=== PATIENT | female | born 1970 | race Caucasian/White ===

== ENCOUNTER → 2018-06-02 | Outpatient (REF) | payer MEDICARE, MEDICAID ==
[2018-06-02 19:14] LABS: APPEARANCE, URINE CLOUDY (CLEAR); BACTERIA, URINE AUTO NEGATIVE (NEGATIVE); BILIRUBIN, URINE AUTO NEGATIVE (NEGATIVE); BLOOD, URINE BLOOD NEGATIVE (NEGATIVE); COLOR, URINE YELLOW (YELLOW); GLUCOSE, URINE (UA) AUTO NEGATIVE (NEGATIVE); KETONE, URINE AUTO NEGATIVE (NEGATIVE); LEUKOCYTE ESTERASE, URINE AUTO NEGATIVE (NEGATIVE); NITRITE, URINE AUTO NEGATIVE (NEGATIVE); PROTEIN, URINE AUTO NEGATIVE (NEGATIVE); RBC, URINE AUTO 1 /HPF (0-3); SPECIFIC GRAVITY URINE AUTO 1.017 (1.002-1.035); SQUAMOUS EPITHELIAL CELL UR AU 8 /HPF (0-6); WBC, URINE AUTO 1 /HPF (0-3)
== END ==
LOC: M SMT 17:45
PROVIDERS: ATTEND Nurse Practitioner Women's Health
DX: Q61.00 Congenital renal cyst, unspecified (principal)
CPT/HCPCS: 36415; 80048; 81001; 87088; 87186; G0463

== ENCOUNTER → 2018-06-02 | Outpatient (CLI) | payer MEDICARE, MEDICAID ==
[2018-06-02 18:59] LABS: BLOOD UREA NITROGEN 12 MG/DL (7-18); CALCIUM LEVEL 8.5 MG/DL (8.5-10.1); CARBON DIOXIDE LEVEL 29 MEQ/L (21-32); CHLORIDE LEVEL 106 MEQ/L (98-107); CREATININE FOR GFR 0.65 MG/DL (0.55-1.30); GLOMERULAR FILTRATION RATE > 60.0 (>58); GLUCOSE, FASTING 79 MG/DL (70-100); POTASSIUM SERUM 4.3 MEQ/L (3.5-5.1); SODIUM LEVEL 138 MEQ/L (136-145)
== END ==
LOC: M SMT 15:23
PROVIDERS: ATTEND Nurse Practitioner Women's Health
DX: Q61.00 Congenital renal cyst, unspecified (principal)

== ENCOUNTER → 2019-05-18 | Outpatient (CLI) | payer MEDICARE, MEDICAID ==
--- NOTE | 2019-05-18 19:09 | REP ---
CT ABDOMEN WITH AND WITHOUT CONTRAST: Outside study from [facility] dated 01/18/2019. Axial CT images obtained prior to and following intravenous contrast administration. Coronal reconstruction images performed as well. Visualized lung bases demonstrate no infiltrate. The liver demonstrates no mass. The gallbladder is contracted. Common bile duct is mildly prominent 9 mm in maximum diameter. The spleen is normal in size with no intrinsic abnormality. The right adrenal gland is normal. The pancreas is unremarkable. Left adrenal and kidney have been surgically removed with multiple metallic clips in the left renal fossa and no evidence of residual mass. Right kidney demonstrates a cystic mass partially exophytic in the lower pole. Precontrast images show partial wall calcification which is linear in nature. Internal density measurements are slightly greater than that of water, generally between 10 and 20 Hounsfield units. On the post contrast images there is no appreciable internal enhancement of this cystic mass. There is no adenopathy, free air or free fluid. There are degenerative changes of the spine. IMPRESSION: Complex cystic mass lower pole right kidney. It measures 3.5 cm in diameter. There is mild calcification and thickening of the wall of the cyst. Density measurement internally is 10 to 20 Hounsfield units with no appreciable enhancement. 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 Electronically Signed by Tawanda Pollack MD 05/19/2019 04:38 P
== END ==
LOC: M RAD 14:19
PROVIDERS: ATTEND Urology
DX: Q61.00 Congenital renal cyst, unspecified (principal)